=== PATIENT | female | born 1955 | race Caucasian/White ===

== ENCOUNTER 2025-01-02 15:52 | Inpatient (IN) | payer MEDICARE, SELFPAY ==
[2025-01-02] VITALS (15 sets, daily range): BP systolic 81–110; BP diastolic 59–69; BMI 29.6; BMI 30.9
[2025-01-02 11:32] LABS: Hematocrit 37.3 % (37.0-47.0); Hemoglobin 13.0 g/dL (12.0-16.0); Mean Corp Hgb Conc. 34.9 g/dL (33.0-37.0); Mean Corpuscular Volume 90.3 fL (81.0-99.0); Nucleated Red Blood Cells % 0 %; Platelet Count 216 10^3/uL (130-400); Red Cell Dist. Width 14.9 % (11.5-14.5)
[2025-01-02 11:57] LABS: ALT (SGPT) 27 U/L (0-35); AST (SGOT) 43 U/L (14-36); Albumin 3.3 g/dl (3.5-5.0); Alkaline Phosphatase 100 U/L (38-126); Blood Urea Nitrogen 16 mg/dl (7-17); Calcium 8.1 mg/dl (8.4-10.2); Carbon Dioxide 20 mmol/L (22-30); Chloride 100 mmol/L (98-107); Glucose 136 mg/dl (70-99); Potassium 3.5 mmol/L (3.5-5.1); Sodium 127 mmol/L (135-145); Total Protein 5.7 g/dl (6.3-8.2); eGFR > 60.00
--- NOTE | 2025-01-02 11:59 | ED.GENMED ---
History of Present Illness
General
Chief Complaint: Fever
Source: patient and family (Daughter)
Exam Limitations: none
Time Seen by Provider: 01/02/25 11:41
Nursing documentation reviewed up to this point in time: agreed with
History of Present Illness
History of Present Illness:
69-year-old female with a past medical history of hyperlipidemia, hypothyroidism, anxiety/depression who presents to the emergency department for evaluation of fever and malaise. Patient reports that she started feeling unwell last week with
generalized fatigue that eventually progressed to shaking chills/fever over the weekend. She says that in addition to fever/chills and fatigue she has also had generalized myalgias. She has had mild nausea and decreased appetite. She has had some
urinary urgency over the past few days as well. She has not had any dysuria or hematuria. She denies any abdominal pain or flank pain. She denies any vomiting despite her report of nausea, denies diarrhea. She denies any head or neck pain,
congestion or sore throat. She has not had any cough. She does report some mild shortness of breath. She denies any chest pain. She denies rash. Denies recent travel or bug bite. She reports that she initially presented to urgent care last
night�there she said she was hypotensive, ultimately was diagnosed with a UTI. She was observed there for a few hours and blood pressure improved and she was discharged on Keflex and took 2 doses yesterday but has not taken antibiotics today.
Past History
Past History
ED Past Medical History: Hypercholesterolemia
ED Past Surgical History: None
Social History
Personal:
Review of Systems
Review of Systems
All Other Systems: ROS reviewed and negative except as documented in HPI and ROS
Constitutional: Reports fever, fatigue and chills
EENT: Denies sore throat or runny nose
Respiratory: Reports trouble breathing; Denies cough
Cardiac: Denies chest pain
ABD/GI: Reports nausea and anorexia; Denies abdominal pain, vomiting or diarrhea
: Reports frequency and urgency; Denies dysuria, flank pain or bleeding
Musculoskeletal: Reports muscle pain; Denies neck pain or back pain
Neurological: Denies headache
Phy Exam
Physical Exam
Physical Exam:
General: Awake, alert, oriented x3; no acute distress
Head: Normocephalic, atraumatic
Eyes: Conjunctiva normal, EOMI
Throat: Airway intact, somewhat dry mucous membranes
Neck: Trachea midline, supple without meningismus
Lungs: Clear to auscultation bilaterally, no wheezing, rales, rhonchi
Heart: Tachycardia with regular rhythm, no murmurs, gallops, or rubs
Abd: Soft, non distended, nontender
Back: No CVA tenderness
Neuro: Cranial nerves grossly intact, speech fluid, motor and sensory grossly intact
Skin: no rash
Extremities: No edema in extremities, equal pulses in all extremities
Scores
Heart Failure Risk
Heart Failure Risk Score: Not Applicable
Heart Score for Chest Pain Patients
STEMI patient?: Not applicable
Withdrawal Assessment of Alcohol
Withdrawal Assessment Completed?: Not applicable
Sepsis
Sepsis Screening
Sepsis Assessment: Sepsis
Sepsis Screen
Sepsis Screen: Sepsis
Date: 01/02/25
Time: 15:10
Course
Orders/Labs/Results
Orders:
Orders
01/02/25 11:17
Electrocardiogram (*1) Urgent
Reason for Study: Other
Other Reason for Exam: Possible Sepsis
EKG- Treatment ONCE
01/02/25 11:22
Complete Blood Count/With Diff Urgent
Comprehensive Metabolic Panel Urgent
Lactic Acid Q4H
Comment: ON ICE, CANCEL 2ND ORDER IF FIRST LACTIC ACID LEVEL <2
Blood Culture Q20M
MP Source: Blood/Venous
Specimen Description:
Comment: Urgent from separate sites. If patient screens positive for possible sepsis
01/02/25 11:42
Urinalysis Reflex To Culture Urgent
Date Specimen was Collected: 01/02/25
Time Specimen was Collected: 12:02
0.9% Sodium Chloride 1000 ml [Nss] 1,000 ml IV BOLUS
Acetaminophen [Tylenol] 1,000 mg PO NOW STA
01/02/25 11:55
CT Abd/pelvis W Iv Cont Urgent
Comment:
Reason For Exam: fever, sepsis, urinary sxs
01/02/25 12:06
COVID-19 Antigen Urgent
Source: Nasal Swab
Free T4 Urgent
TSH Reflex To Free T4 Urgent
Blood Culture Q20M
MP Source: Blood/Venous
Specimen Description:
Comment: Urgent from separate sites. If patient screens positive for possible sepsis
Influenza A+B Rapid Molecular Urgent
MP Source: Nasal Swab
Specimen Description:
01/02/25 13:11
CXR2 [CR Chest - 2 Views ] Urgent
Comment:
Reason For Exam: shortness of breath
01/02/25 15:03
0.9% Sodium Chloride 1000 ml [Nss] 1,000 ml IV BOLUS
Piperacillin/Tazo 3.375 Gram [Zosyn] 3.375 gram in 50 ml IV NOW
01/02/25 15:10
Straight cath- Treatment ONCE
Abnormal Lab Results
01/02/25 01/02/25
11:22 12:06
WBC 13.2 H 10^3/uL
(4.8-10.8)
RBC 4.13 L 10^6/uL
(4.20-5.40)
MCH 31.5 H pg
(27.0-31.0)
RDW 14.9 H %
(11.5-14.5)
MPV 10.7 H fL
(7.4-10.4)
Abs Immat Gran (auto) 0.1 H 10^3/uL
(0-0.05)
Absolute Neuts (auto) 11.1 H 10^3/uL
(1.4-6.5)
Absolute Lymphs (auto) 1.1 L 10^3/uL
(1.2-3.4)
Absolute Monos (auto) 1.0 H 10^3/uL
(0.1-0.6)
Immature Gran % 0.6 H %
(0-0.5)
Neutrophils % 83.8 H %
(42.2-75.2)
Lymphocytes % 8.0 L %
(20.5-51.1)
Sodium 127 L mmol/L
(135-145)
Carbon Dioxide 20 L mmol/L
(22-30)
Glucose 136 H mg/dl
(70-99)
Calcium 8.1 L mg/dl
(8.4-10.2)
AST 43 H U/L
(14-36)
Total Protein 5.7 L g/dl
(6.3-8.2)
Albumin 3.3 L g/dl
(3.5-5.0)
TSH (Reflex) 0.43 L uIU/ml
(0.47-4.68)
01/02/25 11:22
01/02/25 11:22
Vital Signs
Initial and Last Documented VS:
Initial Vital Signs
Temp Pulse Resp BP Pulse Ox
39.0 C H 122 18 104/68 94
01/02/25 11:15 01/02/25 11:15 01/02/25 11:15 01/02/25 11:15 01/02/25 11:15
Last Documented Vital Signs
Temp Pulse Resp BP Pulse Ox
37.7 C 91 16 105/61 94
01/02/25 12:13 01/02/25 12:13 01/02/25 12:13 01/02/25 12:13 01/02/25 12:13
MDM/Problems Addressed
Differential Diagnosis Includes:
Fever and malaise: Viral syndrome, UTI/pyelonephritis, hyperthyroidism, other infection (pneumonia, colitis/enteritis, etc)
MDM/Problems Addressed:
69-year-old female presents for evaluation of fever and malaise for the past week or so�diagnosed with UTI at urgent care yesterday. Aside from fever and malaise, main specific symptoms have been urinary. She is normotensive here but tachycardic.
She is febrile. No hypoxia or tachypnea. Exam as above. She had labs sent in triage including a CBC and a CMP�CBC shows leukocytosis to 13.2, CMP shows hyponatremia. Add thyroid studies. Check lactate and blood cultures. Will check urinalysis
and culture. Swab for COVID and flu. Check chest x-ray to rule out pneumonia. Will check CT abdomen pelvis. Provide fluids and antipyretic. Monitor very closely and reassess after the above.
CT shows signs consistent with acute pyelonephritis. Chest x-ray reviewed by me shows no acute disease. Thyroid studies normal. Heart rate improving with fluids, blood pressure stable. Fever improved with Tylenol. Concern at this point for
sepsis secondary to pyelonephritis. Will cover with Zosyn. Discussed with hospitalist for admission.
*Radiology
Radiology exam reviewed: radiology read reviewed
*Pulse Oximetry
SaO2: 94
Oxygen Mode of Delivery: Room air
Patient hypoxic: no (94%)
*EKG
Interpreted by ED Provider?: Yes
Heart Rate: 119
Rate: tachycardiac
Rhythm: sinus tachycardia
[place]: normal axis
Interval: normal interval
QRS Pattern: normal QRS
Ischemia: no ischemia
*Critical Care Note
Total Time (30-74mins, 75-104mins- exclusive of procedures): Not Applicable
Data Reviewed
Review of Other/Old Records Reveals: Records (Reviewed discharge paperwork from urgent care)
Source: patient and family
Patient Management
Discussion with other providers: Hospitalist (Discussed with hospitalist)
Escalation/DeEscalation of care consider admission/obs:
Admission indicated
ED Attending Note
-
Portions of this chart may have been created with voice recognition software.� Occasional wrong word or��sound alike� substitutions may have occurred due to the inherent limitations of voice recognition software.
Discharge Plan
Departure
Patient Disposition: Admit
Date of Disposition: 01/02/25
Time of Disposition: 15:09
Admit to doctor: Bj
Presentation/result/management discussed w/ accepting MD/DO: Hospitalist
Discharge Problem:
Acute pyelonephritis, Sepsis
Prescriptions:
No Action
levothyroxine 137 mcg Tablet
137 mcg PO DAILY
lamotrigine 200 mg Tablet
200 mg PO DAILY
quetiapine [Seroquel] 100 mg Tablet
100 mg PO DAILY
pantoprazole [Protonix] 40 mg Tablet,Delayed Release (Dr/Ec)
40 mg PO DAILY
bupropion HCl 300 mg Tablet Extended Release 24 Hr
300 mg PO DAILY
ezetimibe-simvastatin 10-20 mg Tablet
1 tab PO DAILY
Referrals:
Brittny Ba DO [Family Provider, Family Practice]
Interventions
Interventions:
*Risk Screen - Suicide Last Done: 01/02/25 11:15
Discharge Date and Time
Print Language: UPPER SORBIAN
[2025-01-02] MEDS: TYLENOL 1000 MG PO (12:09)
[2025-01-02] MEDS: NSS 1000 IV ×3 (12:10→22:36)
[2025-01-02 12:44] LABS: COVID-19 Antigen Negative (Negative)
--- NOTE | 2025-01-02 15:10 | HPS.HSE ---
Family Physician
-
Family Physician: Brittny Ba
Chief Complaint
-
fever chills,
History of Present Illness
69-year-old female with a past medical history of hyperlipidemia, hypothyroidism, anxiety/depression who presents to the emergency department for evaluation of fever and malaise since . patient stated generalized weakness, fatigue since
. over the weekend she noticed fever, and shaking chills. she was taking Tylenol with some relief in her fever. she has also had generalized myalgias. She has had mild nausea and decreased appetite. She has had some urinary urgency over
the past few days as well. She has not had any dysuria or hematuria. She denies any abdominal pain or flank pain. denied sbo. She denies any chest pain. She denies rash. She reports that she initially presented to urgent care yesterday and was
kept there for few hours for low BP. her BP improved little after drinking water. her urine was positive for UTI sent her home on Keflex. last night she was too dizzy and lightheaded,she was holding on to furniture to walk.
Patient received 2 L normal saline in ER. Patient received ceftriaxone, Tylenol. Blood culture sent from ER. admitting For further management
Medical History
Past Medical History
Past Medical History: Reports Other
Additional Past Medical History:
Insomnia
ADHD
Depression
Hyperlipidemia
Hypothyroidism
Acid reflux
tubal ligation
Past Surgical History: Reports Other
Additional Past Surgical History:
tubal ligation
back surgery
thyroid nodule removed
Social History
Tobacco: Non-smoker
Alcohol: None
Drug: None
Living: With Family
Family History
Family History: Not pertinent
Allergies / Home Medications
Allergies reflects when Allergies were last updated in [employer].
Home Medications with original date entered in Sendmail
Allergy/Medication List:
Allergies
Allergy/AdvReac Type Severity Reaction Status Date / Time
No Known Allergies Allergy Verified 01/02/25 11:14
Home Medications
Lactobac no.2-Bifidobac no.1-S. thermo 112.5 billion cell capsule (Visbiome) 1 cap PO DAILY 01/02/25
alprazolam 0.5 mg tablet (Xanax) 0.5 mg PO TIDPRN PRN anxiety 01/02/25
aspirin 81 mg tablet,delayed release 81 mg PO DAILY 01/02/25
bupropion HCl 300 mg 24 hr tablet, extended release 300 mg PO DAILY 01/02/25
calcium carbonate 500 mg PO DAILY 01/02/25
cephalexin 500 mg capsule 500 mg PO BID 01/02/25
ezetimibe 10 mg-simvastatin 20 mg tablet 1 tab PO QPM 01/02/25
glucosamine-chondroitin 250 mg-200 mg tablet 2 tab PO DAILY 01/02/25
lamotrigine 200 mg tablet 200 mg PO DAILY 01/02/25
levothyroxine 137 mcg tablet 137 mcg PO DAILY 01/02/25
magnesium oxide 400 mg PO QPM 01/02/25
pantoprazole 40 mg tablet,delayed release (Protonix) 40 mg PO DAILY 01/02/25
quetiapine 100 mg tablet (Seroquel) 150 mg PO HS 01/02/25
therapeutic multivitamin 1 tab PO DAILY 01/02/25
Review of Systems
-
Constitutional: Reports Fever, Fatigue and Chills
EENT: Reports No Symptoms
Respiratory: Reports No Symptoms
Cardiac: Reports No Symptoms
Abdomen/GI: Reports Nausea
: Reports No Symptoms
Musculoskeletal: Reports No Symptoms
Skin: Reports No Symptoms
Neurological: Reports Dizzy and Weakness
Endocrine: Reports No Symptoms
Hematologic/Lymphatic: Reports No Symptoms
Psych: Reports No Symptoms
Physical Exam
Vital Signs
Vital Signs
Temp Pulse Resp BP Pulse Ox
99.8 F 91 16 105/61 94
01/02/25 12:13 01/02/25 12:13 01/02/25 12:13 01/02/25 12:13 01/02/25 12:13
Physical Exam
General: Well Developed, Well Nourished and No Apparent Distress
HEENT: NormoCephalic, Moist mucous membranes and Atraumatic
Respiratory: Clear
Cardiac: S1/S2 and Regular Rhythm; No Murmur or Rub
GI: Soft, Non Tender, Non Distended and Normal Bowel Sounds; No Organomegaly
Rectal: Deferred by Provider
Musculoskeletal: No Clubbing, No Cyanosis and No Edema
Skin: No Rash
Neuro: AO x 3 and Nonfocal/grossly intact
Psych: Calm
Laboratory Results
-
01/02/25 11:22
01/02/25 11:22
Laboratory Results
Lactic Acid Cancelled 01/02/25 11:30
Total Bilirubin 0.4 mg/dl (0.2-1.3) 01/02/25 11:22
AST 43 U/L (14-36) H 01/02/25 11:22
ALT 27 U/L (0-35) 01/02/25 11:22
Alkaline Phosphatase 100 U/L (38-126) 01/02/25 11:22
Data Reviewed
-
CT Scan: Report Reviewed by me
Lab Data: Labs Reviewed by me
Impression/Plan
-
# Sepsis secondary to pyelonephritis
- WBC 13.2,hypotension
-UA negative
-CT with the impression of CT findings compatible with pyelonephritis involving the right kidney. No evidence for renal abscess at this time.Left renal cyst. No convincing findings for left pyelonephritis.No evidence for bowel obstruction or free
intraperitoneal air
- IV ceftriaxone continue
-UA, COVID-negative
-X-ray negative for acute infection
# Hyponatremia/metabolic acidosis likely hypovolemic
- Sodium 127
- Fluids continued
- Monitor BMP in a.m.
- Obtain urine sodium, serum osmolality, urine osmolality
# Anxiety
- Xanax, Lamictal continued
- Seroquel, Wellbutrin continued
# GERD
- Protonix continued
# Hypothyroidism
- Levothyroxine continued
# Hyperlipidemia
- Zetia/simvastatin continue
# DVT prophylaxis
- Lovenox subcu
# CODE STATUS
- Full code
--- NOTE | 2025-01-02 15:23 | W.PN.UPDATE ---
Update Note
Progress Note Update
his note serves as an addendum to the H&P by bulk sealer TOMMY�
Taylor PATRIC�
HPI
69F HX hyperlipidemia, hypothyroidism, anxiety/depression seen at ER:
- for evaluation of fever and malaise.
- feeling unwell last week with generalized fatigue
- eventually progressed to shaking chills/fever over the weekend.
- generalized myalgias.
- had mild nausea and decreased appetite.
- some urinary urgency over the past few days as well- not had any dysuria or hematuria.
- [place] [facility] [place]t was hypotensive, diagnosed with a UTI. She was observed there for a few hours and blood pressure improved and she was discharged on Keflex and took 2 doses yesterday but has not taken antibiotics today.
Denied frequent UTIs
ROS
- denies any abdominal pain or flank pain.
- denies any vomiting despite her report of nausea, denies diarrhea.
Relevant VS
01/02/25
11:15
Temp 102.2 F H
Pulse 122
PE
Febrile T 102
Gen: NAD, nontoxic
Lungs: CTA
Cor: tahy cardic
Abdomen:�soft , R CVA
UNDER PRESSER: AAO3
Psych: nl mood and affect
Relevant data�
01/02/25
11:22
WBC 13.2 H
Sodium 127 L
Carbon Dioxide 20 L
Creatinine 0.9
eGFR > 60.00
Lactic Acid 1.[address] Abd/pelvis W Iv Cont
- compatible with pyelonephritis involving the right kidney.
- No evidence for renal abscess at this time.
- Left renal cyst. No convincing findings for left pyelonephritis.
- No evidence for bowel obstruction or free intraperitoneal air.
- Bony degenerative changes as described.
CXR
Linear densities within both lower lungs, which is likely linear atelectasis.
NO PRIOR hospitalist admission:
ASSESSMENT & PLAN
Sepsis due to acute R PN
r/o bacteremia
s/p 2 dose of Keflex
Denied frequent UTIs
- POS SIRS picture ( T 102, ST, WCC 14)
- f/u BCx
- Empiric IV CFTZ in place of Zosyn
- Tylenol PRN
- IV NS
Hypothyroid
- stable
- on LT4
HLD
on Ezetimibe - simvastatin
DVT Px: LMWH
Full code
IP TLM
[2025-01-02 16:08] LABS: Urine Character Clear (Clear)
[2025-01-02 16:21] LABS: Urine Squamous Cell 0-2 /LPF (Few)
[2025-01-02] MEDS: ROCEPHIN 2000 MG IV (16:56)
[2025-01-02] MEDS: STERILE WATER FOR INJECTION 20 ML IV (16:56)
[2025-01-02] MEDS: SEROQUEL 150 MG PO (22:37)
[2025-01-02] MEDS: ZETIA 10 MG PO (22:39)
[2025-01-02] MEDS: LIPITOR PO (22:42)
[2025-01-03] MEDS: TYLENOL 650 MG PO ×2 (02:41→19:45)
[2025-01-03 03:44] VITALS: BP 140/78
[2025-01-03] MEDS: SYNTHROID 137 MCG PO (06:04)
[2025-01-03 07:00] VITALS: BP 110/65
--- NOTE | 2025-01-03 07:52 | W.PN.UPDATE ---
Update Note
Progress Note Update
I saw and evaluated the patient. I reviewed the resident�s note and agree with findings and plan as documented in the resident�s note.
Pt reports chills overnight.
Gen: NAD, AAOx3.
Eyes: EOMI, PERRLA, no scleral icterus.
Neck: supple.
CV: RRR, +S1/S2, no m/r/g.
Resp: CTAB, no rales, wheezes, or rhonchi.
Abd: +BS, soft, NT, ND
Skin: No rashes.
Neuro: CN 2-12 intact, non-focal.
Psych: Normal mood and affect.
CT A/P: CT findings compatible with pyelonephritis involving the right kidney. No evidence for renal abscess at this time. Left renal cyst. No convincing findings for left pyelonephritis. No evidence for bowel obstruction or free intraperitoneal air.
Sepsis due to pyelonephritis:
-with non-AG met acidosis
-with hypotension, improved with IVFs, cont IVFs
-leukocytosis has resolved
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
-cont Rocephin
-follow UCx/BCxs
Hyponatremia:
-follow AM Na with IVFs
Other problems:
Anxiety: cont Xanax/Lamictal/Seroquel/Wellbutrin /
GERD: cont PPI
Hypothyroidism: cont Levoxyl
HLD: cont zetia/statin
Obesity due to excess calories
FULL/Lovenox
[2025-01-03 08:14] LABS: Hematocrit 32.0 % (37.0-47.0); Hemoglobin 10.9 g/dL (12.0-16.0); Mean Corp Hgb Conc. 34.1 g/dL (33.0-37.0); Mean Corpuscular Volume 92.2 fL (81.0-99.0); Platelet Count 201 10^3/uL (130-400); Red Cell Dist. Width 15.4 % (11.5-14.5)
[2025-01-03 08:44] LABS: Blood Urea Nitrogen 10 mg/dl (7-17); Calcium 8.1 mg/dl (8.4-10.2); Carbon Dioxide 22 mmol/L (22-30); Chloride 111 mmol/L (98-107); Estimated Creatinine Clearance 95 ml/min; Glucose 93 mg/dl (70-99); Potassium 3.8 mmol/L (3.5-5.1); Sodium 138 mmol/L (135-145); eGFR > 60.00
[2025-01-03] MEDS: OSCAL CAL 500 500 MG PO (08:47)
[2025-01-03] MEDS: WELLBUTRIN XL (24 hour extended release) 300 MG PO (08:47)
[2025-01-03] MEDS: LAMICTAL 200 MG PO (08:47)
[2025-01-03] MEDS: THERAGRAN 1 TABLET PO (08:47)
[2025-01-03] MEDS: PROTONIX 40 MG PO (08:47)
[2025-01-03] MEDS: VISBIOME 1 CAP PO (08:47)
[2025-01-03] MEDS: NSS 1000 IV ×2 (08:52→20:47)
--- NOTE | 2025-01-03 10:43 | W.PN.HOSP.TC ---
Today's Communication/Plan
-
Follow-up blood and urine cultures
Continue IV ceftriaxone
Continue IV fluids
Assessment / Plan
Assessment / Plan
Shannon is a 69-year-old female with hyperlipidemia, GERD, hypothyroidism, anxiety/depression, who presented to the ED 01/02/2025 with generalized weakness, fatigue, 3 days of fever/chills, and soft blood pressure (100/60s). In the ED her UA was
negative (probably due to the fact that she was on antibiotics prior per urgent care) but CT A/P showed pyelonephritis involving the right kidney and she was given IVF and started on IV ceftriaxone. CXR in ED showed linear densities within both
lower lungs, likely linear atelectasis. [place] [facility] [place] her [place].
#Sepsis secondary to right pyelonephritis
#Hypotension, resolved
- Continue IV ceftriaxone
- Follow-up blood and urine cultures
- Continue IVF
#Anxiety
#Depression
- Continue Xanax 0.5 mg p.o. 3 times daily as needed
- Continue bupropion HCl 300 mg p.o. daily
- Continue lamotrigine 200 mg daily
- Continue Seroquel 150 mg p.o. at bedtime
#GERD
- Continue Protonix 40 mg daily
#Hypothyroidism
- Continue levothyroxine 137 mcg p.o. daily
#Hyperlipidemia
- Continue ezetimibe-simvastatin 1 tab p.o. p.m.
DVT prophylaxis: Lovenox
CODE STATUS: Full code
Anticipated Discharge: 24 - 48 hours (Pending culture results)
Subjective/Interval History
-
Date of Service: January 03, 2025
-This morning, she is walking around her bed and has no complaints. She denies hematuria, dysuria, N/V, but endorses some urinary frequency but says this is normal for her because she drinks a lot of water. She also states that she was having some
fever/chills overnight, but this morning feels great and ready to go home. I let her know that her blood cultures are still pending 48H and that we are giving her IV antibiotics, so home today is not possible. She was understanding of that.
Objective Data
-
Labs:
Laboratory Results
01/03/25
08:00
WBC 8.7
Hgb 10.9 L
Hct 32.0 L
Plt Count 201
Sodium 138 D
Potassium 3.8
Chloride 111 H
Carbon Dioxide 22
BUN 10
Creatinine 0.6
Glucose 93
Calcium 8.1 L
Vital Signs:
Vital Signs
Temp Pulse Resp BP Pulse Ox
97.7 F 85 16 110/65 96
01/03/25 07:00 01/03/25 07:00 01/03/25 07:00 01/03/25 07:00 01/03/25 07:00
I&O
01/02/25 01/03/25 01/04/25
06:59 06:59 06:59
Intake Total 300 / 300
Balance 300 / 300
Review of Systems
-
History Source: Patient
All other systems: Reviewed and negative
Genitourinary: Reports Frequency
Physical Exam
-
General: Well Developed, Well Nourished, No Apparent Distress, Comfortable and Conversant
HEENT: Normocephalic, Atraumatic and Moist Mucous Membranes
Respiratory: Clear to Auscultation and Non Labored Respirations
Cardiac: Regular Rhythm and S1/S2
GI: Soft, Nontender and Nondistended
Genito-urinary: No Costovertebral Tender
Musculoskeletal: No Clubbing, No Cyanosis and No Edema
Skin: Warm, Dry and Rash
Neuro: AO x 3
Psych: Calm and Intact Judgement/Insight
[2025-01-03 11:00] VITALS: BP 129/73
[2025-01-03 15:00] VITALS: BP 130/79
[2025-01-03] MEDS: STERILE WATER FOR INJECTION 20 ML IV (15:34)
[2025-01-03] MEDS: ROCEPHIN 2000 MG IV (15:34)
[2025-01-03] MEDS: XANAX 0.5 MG PO ×2 (15:42→21:41)
[2025-01-03] MEDS: MAGNESIUM OXIDE 400 MG PO (17:00)
[2025-01-03] MEDS: ZETIA 10 MG PO (17:00)
[2025-01-03] MEDS: LIPITOR 10 MG PO (17:00)
[2025-01-03 19:26] VITALS: BP 138/92
[2025-01-03] MEDS: ASPIR LOW (ENTERIC COATED) 81 MG PO (21:38)
[2025-01-03] MEDS: SEROQUEL 150 MG PO (21:38)
[2025-01-03 23:43] VITALS: BP 102/59
--- NOTE | 2025-01-04 02:55 | DOWNTIME ---
There was a [employer] Downtime on 01/04/2025 from 0100 to 01/04/2025 at 0235. Downtime documentation of patient's care, including medication administrations, has been reconciled in the electronic record per guidelines. Refer to the
patient's paper chart under the miscellaneous tab to see printed paper medication records and downtime forms.
[2025-01-04 03:40] VITALS: BP 96/56
[2025-01-04] MEDS: SYNTHROID 137 MCG PO (06:21)
[2025-01-04] MEDS: NSS 1000 IV ×3 (06:22→19:44)
[2025-01-04 07:00] VITALS: BP 128/67
[2025-01-04 07:15] LABS: Hematocrit 31.1 % (37.0-47.0); Hemoglobin 10.2 g/dL (12.0-16.0); Mean Corp Hgb Conc. 32.8 g/dL (33.0-37.0); Mean Corpuscular Volume 93.7 fL (81.0-99.0); Platelet Count 227 10^3/uL (130-400); Red Cell Dist. Width 15.8 % (11.5-14.5)
[2025-01-04 07:45] LABS: Blood Urea Nitrogen 6 mg/dl (7-17); Calcium 8.3 mg/dl (8.4-10.2); Carbon Dioxide 26 mmol/L (22-30); Chloride 113 mmol/L (98-107); Estimated Creatinine Clearance 95 ml/min; Glucose 89 mg/dl (70-99); Potassium 4.0 mmol/L (3.5-5.1); Sodium 142 mmol/L (135-145); eGFR > 60.00
[2025-01-04] MEDS: WELLBUTRIN XL (24 hour extended release) 300 MG PO (09:05)
[2025-01-04] MEDS: PROTONIX 40 MG PO (09:05)
[2025-01-04] MEDS: THERAGRAN 1 TABLET PO (09:06)
[2025-01-04] MEDS: VISBIOME 1 CAP PO (09:06)
[2025-01-04] MEDS: LAMICTAL 200 MG PO (09:06)
[2025-01-04] MEDS: OSCAL CAL 500 500 MG PO (09:06)
--- NOTE | 2025-01-04 09:18 | W.PN.UPDATE ---
Update Note
Progress Note Update
I saw and evaluated the patient. I reviewed the resident�s note and agree with findings and plan as documented in the resident�s note.
No new complaints.
Gen: NAD, AAOx3.
Eyes: EOMI, PERRLA, no scleral icterus.
Neck: supple.
CV: remains RRR, +S1/S2, no m/r/g.
Resp: CTAB anteriorly, no rales, wheezes, or rhonchi.
Abd: remains +BS, soft, NT, ND
Skin: No rashes.
Neuro: CN 2-12 intact, non-focal.
Psych: Normal mood and affect.
01/02/25 12:06 Urine Urine Culture - Final
Escherichia coli
01/02/25 12:06 Blood/Venous Blood Culture - Preliminary
No Growth in 24 hours- Final report to follow
01/02/25 11:22 Blood/Venous Blood Culture - Preliminary
No Growth in 24 hours- Final report to follow
01/02/25 12:06 Nasal Swab Influenza Types A & B (AMA) - Final
Negative for Influenza A & B, NAAT
Negative results must be combined with clinical observations
and patient history.
Nucleic Acid Amplification test (NAAT)performed on the
[employer] NOW platform.
CT A/P: CT findings compatible with pyelonephritis involving the right kidney. No evidence for renal abscess at this time. Left renal cyst. No convincing findings for left pyelonephritis. No evidence for bowel obstruction or free intraperitoneal air.
Sepsis due to pyelonephritis:
-with non-AG met acidosis
-with hypotension, improved with IVFs, cont IVFs
-leukocytosis has resolved
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
-UCx with pansensitive E coli, BCxs NG x 24 hours
-cont Rocephin
Other problems:
Hyponatremia, resolved with IVFs
Anxiety: cont Xanax/Lamictal/Seroquel/Wellbutrin
GERD: cont PPI
Hypothyroidism: cont Levoxyl
HLD: cont zetia/statin
Obesity due to excess calories
FULL/Lovenox
--- NOTE | 2025-01-04 10:10 | W.PN.HOSP.TC ---
Today's Communication/Plan
-
Urine culture final: E. coli
Continue IV antibiotics
Assessment / Plan
Assessment / Plan
Shannon is a 69-year-old female with hyperlipidemia, GERD, hypothyroidism, anxiety/depression, who presented to the ED 01/02/2025 with generalized weakness, fatigue, 3 days of fever/chills, and soft blood pressure (100/60s). In the ED her UA was
negative (probably due to the fact that she was on antibiotics prior per urgent care) but CT A/P showed pyelonephritis involving the right kidney and she was given IVF and started on IV ceftriaxone. CXR in ED showed linear densities within both
lower lungs, likely linear atelectasis. She was admitted to [facility] [place] for further management of her pyelonephritis.
#Sepsis secondary to right pyelonephritis
#Hypotension, resolved
- S/p IV ceftriaxone 2000 mg daily (01/02-01/04)
- Blood cultures no growth to date: Follow-up
- Urine cultures final: E. coli
--IV ceftriaxone 2000 mg daily
- Continue IVF
#Anxiety
#Depression
- Continue Xanax 0.5 mg p.o. 3 times daily as needed
- Continue bupropion HCl 300 mg p.o. daily
- Continue lamotrigine 200 mg daily
- Continue Seroquel 150 mg p.o. at bedtime
#GERD
- Continue Protonix 40 mg daily
#Hypothyroidism
- Continue levothyroxine 137 mcg p.o. daily
#Hyperlipidemia
- Continue ezetimibe-simvastatin 1 tab p.o. p.m.
Diet: Cholesterol-lowering
DVT prophylaxis: Lovenox
CODE STATUS: Full code
Anticipated Discharge: Within 24 hours (Pending final blood culture)
Subjective/Interval History
-
Date of Service: January 04, 2025
-This morning, she is sitting up in bed stating she feels great and she is eager to go home. She endorses a dry mouth (likely side effect from IV antibiotics) but denies any urinary symptoms, pain, or new issues. She states that she has a great
appetite and is eating well.
Objective Data
-
Labs:
Laboratory Results
01/04/25
06:12
WBC 6.1
Hgb 10.2 L
Hct 31.1 L
Plt Count 227
Sodium 142
Potassium 4.0
Chloride 113 H
Carbon Dioxide 26
BUN 6 L
Creatinine 0.5 L
Glucose 89
Calcium 8.3 L
Vital Signs:
Vital Signs
Temp Pulse Resp BP Pulse Ox
98.4 F 80 18 128/67 96
01/04/25 07:00 01/04/25 07:00 01/04/25 07:00 01/04/25 07:00 01/04/25 07:00
I&O
01/03/25 01/04/25 01/05/25
06:59 06:59 06:59
Intake Total 1959 200 / 200
Balance 1959 200 / 200
Review of Systems
-
History Source: Patient
All other systems: Reviewed and negative
Physical Exam
-
General: Well Developed, Well Nourished, No Apparent Distress, Comfortable and Conversant
HEENT: Normocephalic, Atraumatic and Moist Mucous Membranes
Respiratory: Clear to Auscultation and Non Labored Respirations
Cardiac: Regular Rhythm and S1/S2
GI: Soft, Nontender and Nondistended
Genito-urinary: No Costovertebral Tender
Musculoskeletal: No Clubbing, No Cyanosis and No Edema
Skin: Warm and Dry
Neuro: AO x 3
Psych: Calm and Intact Judgement/Insight
[2025-01-04 11:00] VITALS: BP 130/80
[2025-01-04 15:00] VITALS: BP 141/81
--- NOTE | 2025-01-04 15:13 | CM ---
assistant produce manager reviewed patient's chart and met with patient and patient was admitted from home, patient's mother lives with patient, in a 2 story home, is independent with adl's and ambulation, no dme, patient drives, home when stable no needs. No
needs.
PCP: Brittny Ba
Pharmacy: [facility]
[2025-01-04] MEDS: STERILE WATER FOR INJECTION 20 ML IV (15:53)
[2025-01-04] MEDS: ROCEPHIN 2000 MG IV (15:53)
[2025-01-04] MEDS: XANAX 0.5 MG PO (15:54)
[2025-01-04] MEDS: MAGNESIUM OXIDE 400 MG PO (17:13)
[2025-01-04] MEDS: ZETIA 10 MG PO (17:13)
[2025-01-04] MEDS: LIPITOR 10 MG PO (17:13)
[2025-01-04 19:30] VITALS: BP 148/82
[2025-01-04] MEDS: ASPIR LOW (ENTERIC COATED) 81 MG PO (22:29)
[2025-01-04] MEDS: SEROQUEL 150 MG PO (22:29)
[2025-01-04 23:23] VITALS: BP 133/75
[2025-01-05 03:39] VITALS: BP 115/68
[2025-01-05] MEDS: SYNTHROID 137 MCG PO (05:48)
[2025-01-05] MEDS: TYLENOL 650 MG PO (05:49)
[2025-01-05 07:20] VITALS: BP 141/86
[2025-01-05 07:26] LABS: Hematocrit 29.5 % (37.0-47.0); Hemoglobin 9.9 g/dL (12.0-16.0); Mean Corp Hgb Conc. 33.6 g/dL (33.0-37.0); Mean Corpuscular Volume 93.4 fL (81.0-99.0); Nucleated Red Blood Cells % 0 %; Platelet Count 243 10^3/uL (130-400); Red Cell Dist. Width 15.6 % (11.5-14.5)
[2025-01-05 08:16] LABS: ALT (SGPT) 32 U/L (0-35); AST (SGOT) 36 U/L (14-36); Albumin 2.6 g/dl (3.5-5.0); Alkaline Phosphatase 87 U/L (38-126); Blood Urea Nitrogen 5 mg/dl (7-17); Calcium 8.5 mg/dl (8.4-10.2); Carbon Dioxide 26 mmol/L (22-30); Chloride 111 mmol/L (98-107); Estimated Creatinine Clearance 95 ml/min; Glucose 88 mg/dl (70-99); Potassium 3.8 mmol/L (3.5-5.1); Sodium 140 mmol/L (135-145); Total Protein 4.9 g/dl (6.3-8.2); eGFR > 60.00
[2025-01-05] MEDS: LAMICTAL 200 MG PO (09:15)
[2025-01-05] MEDS: OSCAL CAL 500 500 MG PO (09:16)
[2025-01-05] MEDS: PROTONIX 40 MG PO (09:16)
[2025-01-05] MEDS: WELLBUTRIN XL (24 hour extended release) 300 MG PO (09:17)
[2025-01-05] MEDS: VISBIOME 1 CAP PO (09:17)
[2025-01-05] MEDS: THERAGRAN 1 TABLET PO (09:17)
--- NOTE | 2025-01-05 09:43 | W.PN.UPDATE ---
Addendum entered and electronically signed by Price Galvez MD 01/05/25 12:50:
Patient had no evidence of active bleeding. I suspect the patient has chronic anemia and her drop in hemoglobin was dilutional from IV fluids. Recommend outpatient workup.
Original Note:
Update Note
Progress Note Update
I saw and evaluated the patient. I reviewed the resident�s note and agree with findings and plan as documented in the resident�s note.
No new complaints.
Gen: NAD, AAOx3.
Eyes: EOMI, PERRLA, no scleral icterus.
Neck: supple.
CV: Continues to remain RRR, +S1/S2, no m/r/g.
Resp: Remains CTAB anteriorly, no rales, wheezes, or rhonchi.
Abd: Continues to remain +BS, soft, NT, ND
Skin: No rashes.
Neuro: CN 2-12 intact, non-focal.
Psych: Normal mood and affect.
01/02/25 12:06 Blood/Venous Blood Culture - Preliminary
No Growth in 48 hours- Final report to follow
01/02/25 11:22 Blood/Venous Blood Culture - Preliminary
No Growth in 48 hours- Final report to follow
01/02/25 12:06 Urine Urine Culture - Final
Escherichia coli
01/02/25 12:06 Nasal Swab Influenza Types A & B (AMA) - Final
Negative for Influenza A & B, NAAT
Negative results must be combined with clinical observations
and patient history.
Nucleic Acid Amplification test (NAAT)performed on the
[employer] ID NOW platform.
CT A/P: CT findings compatible with pyelonephritis involving the right kidney. No evidence for renal abscess at this time. Left renal cyst. No convincing findings for left pyelonephritis. No evidence for bowel obstruction or free intraperitoneal air.
Sepsis due to pyelonephritis:
-with non-AG met acidosis, now resolved with IVFs
-with hypotension, now resolved with IVFs
-leukocytosis has resolved
-was on abx [employer] which might explain the lack of significant pyuria
-UCx with pansensitive E coli, BCxs NG x 48 hours
-cont Rocephin (will receive dose today prior to d/c) then d/c on ciprofloxacin to complete 14 days total of antibiotic therapy
Other problems:
Hyponatremia, resolved with IVFs
Anxiety: cont Xanax/Lamictal/Seroquel/Wellbutrin
GERD: cont PPI
Hypothyroidism: cont Levoxyl
HLD: cont zetia/statin
Obesity due to excess calories
FULL/Lovenox
Medically cleared for discharge.
Total time spent on d/c = 31 min. This included today's physical exam, progress note, review of laboratory and diagnostic data, preparation of discharge documents and prescriptions, and discussions about the pt's hospital course and discharge plan
with the patient and other medical office assistant instructor involved in the patient's care.
--- NOTE | 2025-01-05 10:47 | PN.CDI ---
CDI
- -
CDI:
Physician Documentation Request
Admit Date: 01/02/25 15:52
Dear Doctor Deborah/Leonor,
Please review the following and provide your response in the progress notes.
Clinical Indicators:
Laboratory Tests
01/02/25 01/03/25 01/04/25
11:22 08:00 06:12
Hgb 13.0 10.9 L 10.2 L
Hct 37.3 32.0 L 31.1 L
01/05/25
06:35
Hgb 9.9 L
Hct 29.5 L
Based on the above and your clinical assessment, please clarify, the condition/diagnosis evaluated, monitored and/or treated?
Acute blood loss anemia
Precipitous drop in hematocrit
Abnormal lab value, clinically insignificant
Other(please specify)
Use of terms such as suspected, likely, concern for, or probable (associated with a specific diagnosis that is being evaluated, monitored, or treated as if it exists) are acceptable and can be coded in the inpatient setting, when documented at the
time of discharge.
Thank you,
Margarita Nina RN BSN CCDS
CDI Specialist
Please contact via tiger text
Please use your independent medical judgment in providing your response.
[2025-01-05 11:10] VITALS: BP 140/82
--- NOTE | 2025-01-05 11:26 | W.PN.HOSP.TC ---
Today's Communication/Plan
-
Plan to discharge home on ciprofloxacin 500 mg twice daily for 14 days
Assessment / Plan
Assessment / Plan
Shannon is a 69-year-old female with hyperlipidemia, GERD, hypothyroidism, anxiety/depression, who presented to the ED 01/02/2025 with generalized weakness, fatigue, 3 days of fever/chills, and soft blood pressure (100/60s). In the ED her UA was
negative (probably due to the fact that she was on antibiotics prior per urgent care) but CT A/P showed pyelonephritis involving the right kidney and she was given IVF and started on IV ceftriaxone. CXR in ED showed linear densities within both
lower lungs, likely linear atelectasis. She was admitted to [facility] [place] for further management of her pyelonephritis.
#Sepsis secondary to right pyelonephritis
#Hypotension, resolved
- S/p IV ceftriaxone 2000 mg daily (01/02-01/04)
- Blood cultures no growth to date: Follow-up
- Urine cultures final: E. coli
--IV ceftriaxone 2000 mg daily, last dose today 01/05
---Plan to discharge home today on ciprofloxacin 500 mg twice daily for 14 days
- Continue IVF
#Anxiety
#Depression
- Continue Xanax 0.5 mg p.o. 3 times daily as needed
- Continue bupropion HCl 300 mg p.o. daily
- Continue lamotrigine 200 mg daily
- Continue Seroquel 150 mg p.o. at bedtime
#GERD
- Continue Protonix 40 mg daily
#Hypothyroidism
- Continue levothyroxine 137 mcg p.o. daily
#Hyperlipidemia
- Continue ezetimibe-simvastatin 1 tab p.o. p.m.
Diet: Cholesterol-lowering
DVT prophylaxis: Lovenox
CODE STATUS: Full code
Anticipated Discharge: Today (Pending 1 more dose of IV ceftriaxone)
Subjective/Interval History
-
Date of Service: January 05, 2025
-This morning, she reports that she is feeling 'great'and ready to go home. She has no urinary or other symptoms.
Objective Data
-
Labs:
Laboratory Results
01/05/25
06:35
WBC 6.7
Hgb 9.9 L
Hct 29.5 L
Plt Count 243
Sodium 140
Potassium 3.8
Chloride 111 H
Carbon Dioxide 26
BUN 5 L
Creatinine 0.5 L
Glucose 88
Calcium 8.5
Total Bilirubin 0.3
AST 36
ALT 32
Alkaline Phosphatase 87
Vital Signs:
Vital Signs
Temp Pulse Resp BP Pulse Ox
97.8 F 81 18 141/86 98
01/05/25 07:20 01/05/25 07:20 01/05/25 07:20 01/05/25 07:20 01/05/25 10:28
I&O
01/04/25 01/05/25 01/06/25
06:59 06:59 06:59
Intake Total 1959 3320 / 3320 240 / 240
Balance 1959 3320 / 3320 240 / 240
Review of Systems
-
History Source: Patient
All other systems: Reviewed and negative
Physical Exam
-
General: Well Developed, Well Nourished, No Apparent Distress, Comfortable and Conversant
HEENT: Normocephalic, Atraumatic and Moist Mucous Membranes
Respiratory: Clear to Auscultation and Non Labored Respirations
Cardiac: Regular Rhythm and S1/S2
GI: Soft and Nontender
Musculoskeletal: No Clubbing and No Edema
Skin: Warm and Dry
Psych: Calm and Intact Judgement/Insight
--- NOTE | 2025-01-05 11:54 | CM ---
Chart reviewed and plan is to home when stable, no needs.
Plan; Home no needs.
[2025-01-05] MEDS: STERILE WATER FOR INJECTION 20 ML IV (12:02)
[2025-01-05] MEDS: NSS IV (12:02)
[2025-01-05] MEDS: ROCEPHIN 2000 MG IV (12:03)
--- NOTE | 2025-01-05 13:20 | W.DCSUMMARY ---
Discharge Summary
Discharge Data
Date of Admission: 01/02/25
Date of Discharge: 01/05/25
-
Pending Results: No
Hospital Course
Discharging Physician : Shad Cabrera MD/FLEX
Disposition : Home
Principal Discharge diagnosis : Pyelonephritis
Hospital Course :
Malaika is a 69-year-old female with hyperlipidemia, GERD, hypothyroidism, anxiety/depression, who presented to the ED 01/02/2025 with generalized weakness, fatigue, 3 days of fever/chills, and soft blood pressure (100/60s). In the ED her UA was
negative (probably due to the fact that she was on antibiotics prior per urgent care) but CT A/P showed pyelonephritis involving the right kidney and she was given IVF and started on IV ceftriaxone. CXR in ED showed linear densities within both
lower lungs, likely linear atelectasis. She was admitted to [facility] [place] her [place]eloneph[place]. She was discharged on 01/05. Hospital course by problem is as below:
1. Sepsis secondary to right pyelonephritis
- S/p IV ceftriaxone 2000 mg daily (01/02-01/04)
- Blood cultures no growth to date: Follow-up
- Urine cultures final: E. coli
--IV ceftriaxone 2000 mg daily, last dose today 01/05
---Plan to discharge home today on Keflex 500 mg twice daily for 14 days
- Continue IVF
2. Anxiety
3. Depression
- Continue Xanax 0.5 mg p.o. 3 times daily as needed
- Continue bupropion HCl 300 mg p.o. daily
- Continue lamotrigine 200 mg daily
- Continue Seroquel 150 mg p.o. at bedtime
4. GERD
- Continue Protonix 40 mg daily
5. Hypothyroidism
- Continue levothyroxine 137 mcg p.o. daily
5. Hyperlipidemia
- Continue ezetimibe-simvastatin 1 tab p.o. p.m.
Important imaging findings :
01/02 CT A/P:
CT findings compatible with pyelonephritis involving the right kidney. No evidence for renal abscess at this time.
Left renal cyst. No convincing findings for left pyelonephritis.
No evidence for bowel obstruction or free intraperitoneal air.
Bony degenerative changes as described.
01/02 CXR:
Linear densities within both lower lungs, which is likely linear atelectasis.
Discharge Plan
-
Patient Disposition: Home (Routine Discharge)
Discharge Diagnosis/Procedures: Pyelonephritis
Condition: Good
Diet: Low Cholesterol
Activity: No restrictions
Driving Restrictions: As prior to admission
Bathing Restrictions: None
Blood Work: Defer to PCP
Others Tests: Defer to PCP
Referrals:
Brittny Ba DO [Family Provider, Family Practice] - in less than 1 week
Referral Note: Follow-up with your PCP within a week of this hospitalization.
Prescriptions:
New
cephalexin 500 mg capsule
500 mg PO QID Qty: 56 0RF
Continued
levothyroxine 137 mcg Tablet
137 mcg PO DAILY
lamotrigine 200 mg Tablet
200 mg PO DAILY
quetiapine [Seroquel] 100 mg Tablet
150 mg PO HS
pantoprazole [Protonix] 40 mg Tablet,Delayed Release (Dr/Ec)
40 mg PO DAILY
bupropion HCl 300 mg Tablet Extended Release 24 Hr
300 mg PO DAILY
ezetimibe-simvastatin 10-20 mg Tablet
1 tab PO QPM
therapeutic multivitamin Tablet
1 tab PO DAILY
aspirin 81 mg Tablet,Delayed Release (Dr/Ec)
81 mg PO DAILY
alprazolam [Xanax] 0.5 mg Tablet
0.5 mg PO TIDPRN PRN (Reason: anxiety)
calcium carbonate 500 mg calcium (1,250 mg) Tablet
500 mg PO DAILY
glucosamine-chondroitin 250-200 mg Tablet
2 tab PO DAILY
Visbiome 112.5 billion cell Capsule
1 cap PO DAILY
magnesium oxide 400 mg magnesium Tablet
400 mg PO QPM
Discontinued
cephalexin 500 mg Capsule
500 mg PO BID
Rx Instructions:
for 7 days starting 01/01/25
Discharge Orders:
Discharge Patient (As Directed); Ordered 01/05/25
Ordered By: Price Galvez
Discharge Date and Time
Print Language: [id number]
== END 2025-01-05 14:03 | disposition home or self-care (01) | DRG 872 ==
LOC: 4 WEST ACU 15:52
PROVIDERS: Emergency Medicine; Registered Nurse; ADMITTING PHYSICIAN Internal Medicine; ATTENDING PHYSICIAN Internal Medicine; EMERGENCY PHYSICIAN Emergency Medicine; FAMILY PHYSICIAN Family Medicine
DX: A41.9 Sepsis, unspecified organism (principal); N10 Acute pyelonephritis; E87.1 Hypo-osmolality and hyponatremia; E87.20 Acidosis, unspecified; J98.11 Atelectasis; F41.9 Anxiety disorder, unspecified; F32.A Depression, unspecified; K21.9 Gastro-esophageal reflux disease without esophagitis; E03.9 Hypothyroidism, unspecified; E78.00 Pure hypercholesterolemia, unspecified; E86.1 Hypovolemia; D64.9 Anemia, unspecified; E66.09 Other obesity due to excess calories; Z68.30 Body mass index [BMI] 30.0-30.9, adult; N28.1 Cyst of kidney, acquired; Z11.52 Encounter for screening for COVID-19; Z79.82 Long term (current) use of aspirin
CPT/HCPCS: 71046; 74177; 80048; 80053; 81003; 81015; 83605; 84439; 84443; 85025; 85027; 87040; 87077; 87086; 87186; 87502; 87811; 93005; 96361; 96374; 96375; 99285; Q9967